=== PATIENT | female | born 1940 | race Caucasian/White ===

== ENCOUNTER 2019-07-30 13:37 | Outpatient (CLI) | payer MEDICARE ==
--- NOTE | 2019-07-30 13:48 | RAD ---
EXAM: Chest 2 views: HISTORY: Cough COMPARISON: 07/26/2011 FINDINGS: There is a normal-sized cardiomediastinal silhouette. Atherosclerotic calcifications are seen in the aorta. Hyperexpansion of the lungs is likely secondary to COPD. There is no evidence of consolidation, mass, or pleural effusion. The bones are unremarkable. IMPRESSION: No evidence of acute cardiopulmonary disease
== END 2019-07-30 13:38 | disposition home or self-care (01) ==
LOC: BICRAD 13:37
PROVIDERS: ATTEND Family Medicine
DX: R05 Cough (principal)
CPT/HCPCS: 71046

== ENCOUNTER 2020-07-13 19:29 | Inpatient (IN) | payer MEDICARE, OTHER ==
[2020-07-13 20:52] LABS: Hemoglobin 14.8 g/dL (12.0-16.0); Mean Corpuscular HGB CONC 33.7 g/dL (32.0-36.0); Mean Corpuscular Hemoglobin 30.5 pg (27.0-31.0); Mean Corpuscular Volume 90.7 fL (78.0-98.0); Mean Platelet Volume 6.4 fL (7.4-10.4); Platelet Count 301 thou/uL (130-400); RBC Distribution Width 11.6 % (11.5-14.5); Red Blood Cell (RBC) Count 4.85 mill/uL (4.20-5.40); White Blood Cell (WBC) Count 22.8 thou/uL (4.8-10.8)
[2020-07-13 21:09] LABS: Band 7 % (5-11); Lymphocytes 9 % (21-51); MDiff Complete? YES; Monocytes 6 % (0-10); Neutrophil 78 % (42-75); Toxic Granulation SLIGHT; Vacuoles SLIGHT
[2020-07-13 21:10] LABS: ALT (SGPT) 46 U/L (8-55); AST (SGOT) 42 U/L (5-34); Albumin 3.1 g/dL (3.4-4.8); Alkaline Phosphatase 100 U/L (40-110); Anion Gap 15 mmol/L (10-20); BUN (Urea Nitrogen) 42 mg/dL (9.8-20.1); Bilirubin, Total 0.7 mg/dL (0.2-1.2); CK (CPK) 28 U/L (29-168); Calc. Creatinine Clearance 0 mL/min (70-130); Calcium 8.3 mg/dL (7.8-10.44); Carbon Dioxide 29 mmol/L (23-31); Chloride 86 mmol/L (98-107); Estimated GFR-MDRD 31; Glucose 130 mg/dL (83-110); Magnesium 1.8 mg/dL (1.6-2.6); Protein, Total 6.1 g/dL (6.0-8.3); Sodium 127 mmol/L (136-145)
[2020-07-13 21:15] LABS: Potassium 2.8 mmol/L (3.5-5.1)
[2020-07-13] MEDS ORDERED: Potassium Chloride 20 MEQ TAB ONE (21:47)
[2020-07-13] MEDS ORDERED: Potassium Chloride 40 MEQ in Sodium Chloride 0.9% 250 ML 250 ML IVPB SCH (22:00)
--- NOTE | 2020-07-13 22:14 | CT ---
CT abdomen and pelvis noncontrast HISTORY: Flank pain. Diarrhea. FINDINGS: Mild atelectasis at the lung bases. Small hiatal hernia. Prominent calcification throughout the arterial structures. Hyperdense stones are present within the dependent portion of the gallbladder lumen. A 2.7 cm cyst is present at the lateral cortex of the right kidney. There are prominent degenerative changes throughout the lumbar spine. Posterior disc protrusion at th e L3-4 level. Calcified fibroid involvement of the uterus. No evidence of bowel obstruction. There is prominent circumferential wall thickening involving the en tirety of the colon and rectum with significant stranding in the adjacent fat. Small amount of fluid at each paracolic gutter. No free air evident. IMPRESSION : Severe inflammatory changes of the entire colon. The pattern is not typical for ischemia. Inflammatio n more severe than usually seen with inflammatory bowel disease. Consider infection. Cholelithiasis. Atherosclerosis.
[2020-07-13] MEDS ORDERED: metroNIDAZOLE 500 MG/100 ML BAG ONE (23:11)
--- NOTE | 2020-07-14 00:02 | PDOC.FPRHP ---
- History of Present Illness Chief Complaint: diarrhea History of Present Illness: Mirela Blair 79 yo F with a history of HTN, HLD complaining of diarrhea of 7 day duration, up to 10 episodes per day. She denies melena or hematochezia. Patient was feeling especially weak and dehydrated today and came to the ED. She was given amoxicillin by her dentist over 1 week ago and began having diarrhea shortly after. Dentist instructed her to discontinue the amoxicillin. She was also taking tylenol #3 for the dental procedure. ED Course: Was found to be hypokalemic (2.8) and given 40PO and 40IV potassium. CT abdomen revealed diffuse inflammatory changes. WBC 22.8, HR > 90. Patient was given cipra, flagyl. - Allergies/Adverse Reactions Allergies Allergy/AdvReac Type Severity Reaction Status Date / Time clindamycin Allergy Verified 07/14/20 02:52 - Home Medications Medication Instructions Recorded Confirmed Type Acyclovir [Zovirax] 400 mg PO DAILY 07/14/20 07/14/20 History Aspirin [Ecotrin Low Strength] 81 mg PO DAILY 07/14/20 07/14/20 History Escitalopram Oxalate [Lexapro] 10 mg PO DAILY 07/14/20 07/14/20 History Folic Acid [FA-8] 0.8 mg PO DAILY 07/14/20 07/14/20 History Hydrochlorothiazide 25 mg PO DAILY 07/14/20 07/14/20 History Naphazoline HCl/Pheniramine 1 drop EA EYE HS 07/14/20 07/14/20 History [Opcon-A Eye Allergy Relief Drops] Polyvinyl Alcohol/Povidone/PF 30 ml EA EYE PRN PRN 07/14/20 07/14/20 History [Refresh Classic Eye Drops] Pravastatin Sodium [Pravachol] 20 mg PO HS 07/14/20 07/14/20 History - History PMHx: HTN, HLD, Depression PSHx: Denies FHx: Noncontributory Social: Denies alcohol, tobacco, drug use. Currently living with her son to care for her grandson. - Review of Systems General: denies: fever/chills Eyes: denies: eye pain, vision changes ENT: denies: nasal congestion, rhinorrhea Respiratory: denies: cough, congestion, shortness of breath Cardiovascular: denies: chest pain, edema Gastrointestinal: reports: vomiting, diarrhea. denies: abdominal pain, GI bleeding Genitourinary: reports: dysuria, other (frequency) Skin: denies: rashes, lesions Musculoskeletal: denies: pain, swelling Neurological: denies: numbness, weakness Psychological: reports: depression - Vital signs BP: 169/78 HR: 88 RR: 14 Tmax: 98.7 Pox: 96% on RA Wt: 51kg - Physical Exam Constitutional: NAD, awake, alert and oriented HEENT: normocephalic and atraumatic, EOMI, conjunctiva clear, no scleral icterus , grossly normal vision, grossly normal hearing Neck: FROM Heart: RRR, pulses present, no edema, other (systolic murmur) Lungs: CTAB, no respiratory distress, good air movement Abdomen: soft, other (mild diffuse tenderness to palpation) Musculoskeletal: ROM grossly normal Psychiatric: normal mood and affect, good judgment and insight, intact recent and remote memory FMR H&P: Results - Labs Result Diagrams: 07/14/20 04:18 07/14/20 04:18 Lab results: WBC 22.8 thou/uL (4.8-10.8) H 07/13/20 20:40 Hgb 14.8 g/dL (12.0-16.0) 07/13/20 20:40 Hct 43.9 % (36.0-47.0) 07/13/20 20:40 MCV 90.7 fL (78.0-98.0) 07/13/20 20:40 Plt Count 301 thou/uL (130-400) 07/13/20 20:40 Band Neuts % (Manual) 7 % (5-11) 07/13/20 20:40 Sodium 127 mmol/L (136-145) L 07/13/20 20:40 Potassium 2.8 mmol/L (3.5-5.1) L* 07/13/20 20:40 Chloride 86 mmol/L (98-107) L 07/13/20 20:40 Carbon Dioxide 29 mmol/L (23-31) 07/13/20 20:40 BUN 42 mg/dL (9.8-20.1) H 07/13/20 20:40 Creatinine 1.58 mg/dL (0.6-1.1) H 07/13/20 20:40 Glucose 130 mg/dL (83-110) H 07/13/20 20:40 Lactic Acid 1.2 mmol/L (0.5-2.2) 07/13/20 22:59 Calcium 8.3 mg/dL (7.8-10.44) 07/13/20 20:40 Total Bilirubin 0.7 mg/dL (0.2-1.2) 07/13/20 20:40 AST 42 U/L (5-34) H 07/13/20 20:40 ALT 46 U/L (8-55) 07/13/20 20:40 Alkaline Phosphatase 100 U/L (40-110) 07/13/20 20:40 Creatine Kinase 28 U/L (29-168) L 07/13/20 20:40 Serum Total Protein 6.1 g/dL (6.0-8.3) 07/13/20 20:40 Albumin 3.1 g/dL (3.4-4.8) L 07/13/20 20:40 - Radiology Interpretation CT scan - abdomen Status: report reviewed by me (diffuse inflammatory changes) FMR H&P: A/P - Plan 79 yo F with a history of HTN, HLD complaining of diarrhea Sepsis 2/2 Colitis WBC 22.8, tachycardia, lactic acid 1.2 CT abd showed diffuse inflammatory changes Stool studies pending BCx pending Procal, CRP pending mIVF Hypokalemia K 2.8, received 40meq KCL PO and IV Mg pending Recheck K with AM labs CATHERINE vs CKD Cr 1.58, unknown baseline Continue to monitor Dysuria/frequency UA with reflux Cx pending HTN Continue home medications HLD Continue home medications Depression Continue home medications PCP: Sudhir Dispo: eLOS > 48hrs pending clinical improvement FMR H&P: Upper Level - Plan Date/Time: 07/14/20 0002 81yo female with pmh of HTN, HLD presents with diarrhea and not feeling well. Reports diarrhea approx 10x per day for the last week. Denies hematochezia, melena. Started a few days after she began taking Amoxicillin for dental work, was also prescribed Tylenol #3. She called her dentist and was instructed to stop Amoxicillin. No hx of chronic diarrhea. Denies abdominal pain. Has been unable to make it to the stool due to urgency. Last colonoscopy "many years ago, " no hx of abnormal findings. Denies fever, chills, cough, SOB. No hx of C diff. Also reports dysuria and urinary frequency for the last week. Has vomited once. Unable to keep up with fluid intake. PE: General: NAD CV: Tachycardic, systolic murmur Pulm: CTA b/l Abdomen: Nontender, BS+, no hepatosplenomegaly Rectal: Incontinent of small amt of stool. External hemorrhoids present. Loose anal sphincter. Otherwise normal. A/P: Sepsis 2/2 Colitis -Tachycardic, leukocytosis 22.8. Lactic acid 1.2. CT with severe inflammatory changes of entire colon. Not typical for ischemia and more severe than seen with IBD. Likely infectious. Stool studies ordered. Blood cx pending. Ordered procal and CRP. mIVF. Admit to tele due to hypokalemia. Hypokalemia, hypochloremia 2/2 diarrhea -2.8, s/p 40meq KCL PO and IV. Ordered Mg. Will recheck K with AM labs. Hyponatremia likely 2/2 hypovolemia - s/p 1L NS. Started on mIVF. Will recheck BMP with AM labs. CATHERINE vs CKD - Cr 1.58, unknown baseline. Continue to monitor Dysuria/frequency - Ordered UA with reflux cx. I, Lesia Gomez, have evaluated this patient and agree with findings/plan as outlined by product managent intern resident. Pertinent changes/additions are listed here. Addendum - Attending - Attending Attestation Date/Time: 07/14/20 1112 I personally evaluated the patient and discussed the management with Dr. Pacheco this morning. I agree with the History, Examination, Assessment and Plan documented above with any addition or exceptions noted below. Patient started on cipro/flagyl prior to me being notified. Will d/c and begin PO vanc. She is comfortable with no overt dehydration at time of my exam and mild TTP of abdomen without peritoneal signs.
[2020-07-14] MEDS ORDERED: Sodium Chloride 0.9% 1,000 ML IV SCH (00:45)
[2020-07-14] MEDS ORDERED: Acetaminophen 325 MG TAB PO PRN (00:53)
[2020-07-14] MEDS ORDERED: Ondansetron ODT 4 MG TAB PO PRN (00:53)
[2020-07-14] MEDS ORDERED: Ondansetron PF 4 MG/2 ML Vial IVP PRN (00:53)
[2020-07-14 01:44] VITALS: BMI 20.7
[2020-07-14 02:05] LABS: CRP (Inflammatory) 20.46 mg/dL (= or < 0.5); Magnesium 1.6 mg/dL (1.6-2.6)
[2020-07-14] MEDS: Lactated Ringer's 1,000 ML IV SCH ×2 (02:20→16:41)
[2020-07-14] MEDS ORDERED: Polyvinyl Alcohol 1.4%/Povidone 0.6% Opth Drops EA EYE PRN (04:12)
[2020-07-14 05:16] LABS: #Eosinphils 0.1 thou/uL (0.0-0.7); #Lymphocytes 0.9 thou/uL (1.20-3.40); #Monocytes 1.5 thou/uL (0.11-0.59); #Neutrophils 16.9 thou/uL (1.40-6.50); %Basophils 0.1 % (0.0-1.0); %Eosinophils 0.3 % (0.0-10.0); %Lymphocytes 4.7 % (21.0-51.0); %Monocytes 7.9 % (0.0-10.0); %Neutrophils 87.1 % (42.0-75.0); Hemoglobin 13.5 g/dL (12.0-16.0); Mean Corpuscular HGB CONC 32.2 g/dL (32.0-36.0); Mean Corpuscular Hemoglobin 29.5 pg (27.0-31.0); Mean Corpuscular Volume 91.6 fL (78.0-98.0); Mean Platelet Volume 6.8 fL (7.4-10.4); Platelet Count 264 thou/uL (130-400); RBC Distribution Width 11.6 % (11.5-14.5); Red Blood Cell (RBC) Count 4.58 mill/uL (4.20-5.40); White Blood Cell (WBC) Count 19.4 thou/uL (4.8-10.8)
[2020-07-14 05:49] LABS: Anion Gap 14 mmol/L (10-20); BUN (Urea Nitrogen) 29 mg/dL (9.8-20.1); Calc. Creatinine Clearance 43 mL/min (70-130); Calcium 7.7 mg/dL (7.8-10.44); Carbon Dioxide 23 mmol/L (23-31); Chloride 96 mmol/L (98-107); Estimated GFR-MDRD 65; Glucose 113 mg/dL (83-110); Potassium 3.8 mmol/L (3.5-5.1); Sodium 129 mmol/L (136-145)
[2020-07-14] MEDS ORDERED: metroNIDAZOLE 500 MG in Premix Bag 1 BAG IVPB SCH (06:00)
[2020-07-14] MEDS: Hydrochlorothiazide 25 MG TAB PO SCH (09:09)
[2020-07-14] MEDS: Acyclovir 400 mg Tablet PO SCH (09:09)
[2020-07-14] MEDS: Folic Acid 1 MG TAB PO SCH (09:09)
[2020-07-14] MEDS: Enoxaparin Sodium 30 MG/0.3 ML SYRINGE SC SCH (09:09)
[2020-07-14] MEDS: Escitalopram Oxalate 10 mg Tablet PO SCH (09:09)
[2020-07-14] MEDS: Aspirin 81 mg Enteric Coated Tablet PO SCH (09:09)
[2020-07-14] MEDS: Vancomycin HCl 25 MG/ML Oral PO SCH ×3 (12:14→21:30)
[2020-07-14 14:55] LABS: SARS-CoV-2 MS2 Positive; SARS-CoV-2 N Gene Negative; SARS-CoV-2 S Gene Negative; SARS-CoV-2 by NAA Not Detected (NotDetected); SARS-CoV-2 orf1ab Negative
[2020-07-14 17:24] LABS: Bacteria/HPF 3+ HPF (None Seen); Bilirubin Negative (Negative); Blood, Urine 2+ (Negative); Clarity Extra Turbid (Clear); Glucose, Urine (Dipstick) 50 mg/dL (Negative); Ketone, Urine Negative (Negative); Leukocyte 500 Leu/uL (Negative); Nitrite Negative (Negative); Protein, Urine (Dipstick) 30 mg/dL (Neg-Trace); RBC/HPF Greater than 50 HPF (0-3); Specific Gravity, Urine 1.013 (1.002-1.036); Squamous Epithelial 0-3 HPF (0-3); Urobilinogen Normal mg/dL (Less than 2); WBC/HPF Greater than 50 HPF (0-3); pH, Urine 5.5 (5.0-9.0)
[2020-07-14 17:28] LABS: Urine Culture Reflex Yes Yes
[2020-07-14] MEDS: cefTRIAXone\\ROCEPHIN 1 GM in Sodium Chloride 0.9% 100 ML IVPB SCH (18:20)
[2020-07-14] MEDS ORDERED: [UNRECOGNIZED DRUG - REMARK] EA EYE SCH (21:00)
[2020-07-14] MEDS: Simvastatin 10 MG TAB PO SCH (21:30)
[2020-07-14] MEDS: Calcium Carbonate 500 MG ChewTAB PO PRN (21:30)
[2020-07-15] MEDS: Vancomycin HCl 25 MG/ML Oral PO SCH ×3 (04:49→16:44)
[2020-07-15] MEDS: Lactated Ringer's 1,000 ML IV SCH (04:49)
[2020-07-15 04:55] LABS: #Eosinphils 0.1 thou/uL (0.0-0.7); #Lymphocytes 1.7 thou/uL (1.20-3.40); #Monocytes 1.3 thou/uL (0.11-0.59); %Basophils 0.3 % (0.0-1.0); %Eosinophils 0.8 % (0.0-10.0); %Lymphocytes 13.9 % (21.0-51.0); Hemoglobin 14.4 g/dL (12.0-16.0); Mean Corpuscular HGB CONC 32.4 g/dL (32.0-36.0); Mean Corpuscular Hemoglobin 30.1 pg (27.0-31.0); Mean Corpuscular Volume 92.9 fL (78.0-98.0); Mean Platelet Volume 6.7 fL (7.4-10.4); Platelet Count 304 thou/uL (130-400); RBC Distribution Width 11.6 % (11.5-14.5); Red Blood Cell (RBC) Count 4.78 mill/uL (4.20-5.40); White Blood Cell (WBC) Count 12.2 thou/uL (4.8-10.8)
[2020-07-15 05:16] LABS: Anion Gap 12 mmol/L (10-20); BUN (Urea Nitrogen) 12 mg/dL (9.8-20.1); Calc. Creatinine Clearance 56 mL/min (70-130); Calcium 8.2 mg/dL (7.8-10.44); Carbon Dioxide 28 mmol/L (23-31); Chloride 93 mmol/L (98-107); Estimated GFR-MDRD 89; Glucose 101 mg/dL (83-110); Potassium 3.6 mmol/L (3.5-5.1); Sodium 129 mmol/L (136-145)
--- NOTE | 2020-07-15 05:47 | PDOC.FM ---
- Subjective Subjective: Pt sitting up eating breakfast this AM. No acute events overnight. States that she is still having diarrhea. She feels better today. Less nausea. No vomiting. - Objective Vital Signs & Weight: Vital Signs (12 hours) Temp Pulse Resp BP Pulse Ox 07/15/20 04:00 98.9 F 87 21 H 155/71 H 96 07/14/20 19:28 96.9 F L 85 20 134/63 95 Weight Weight 51.528 kg I&O: 07/13/20 07/14/20 07/15/20 06:59 06:59 06:59 Intake Total 300 2970 Balance 300 2970 Result Diagrams: 07/15/20 04:37 07/15/20 04:37 Phys Exam - Physical Examination Constitutional: NAD HEENT: moist MMs Neck: supple Respiratory: no wheezing, no rales, no rhonchi, clear to auscultation bilateral Cardiovascular: RRR, no rub Gastrointestinal: soft, non-tender, no distention, positive bowel sounds Musculoskeletal: no edema, pulses present Neurological: non-focal, normal sensation, moves all 4 limbs Psychiatric: normal affect, A&O x 3 Skin: no rash, normal turgor, cap refill <2 seconds Dx/Plan - Plan Plan: 79 yo F with a history of HTN, HLD presents with diarrhea. ##Sepsis 2/2 Colitis Pt admitted with WBC 22.8, tachycardia, lactic acid 1.2 CT abd showed diffuse inflammatory changes Stool studies positive for c.diff and toxin, neg for campylobacter, shiga toxin Procal, 0.64, CRP 20 leuokocytosis trending downwards from -->12 today BCx neg po vancomycin started 07/14 ##UTI UA pos for blood, leuks, and bacteria, ceftriaxone started 07/14 urine clx pending ##CATHERINE vs CKD, resolved Cr 1.58, unknown baseline-->12/0.64 Continue to monitor ##Hypokalemia, resolved K 2.8, received 40meq KCL PO and IV-->today 3.6 Mg wnl monitor and replete as necessary ##Hyponatremia Na 127 on admission, 129 today monitor salt intake ##HTN Continue home medications ##HLD Continue home medications ##Depression Continue home medications ##HSV, chronic mouth ulcers Pt on acyclovir for this CODE: FULL VTE: lovenox PCP: Bacak Dispo: eLOS > 48hrs pending clinical improvement. Addendum - Attending - Attending Attestation Date/Time: 07/15/20 3959 I personally evaluated the patient and discussed the management with the team. I agree with the History, Examination, Assessment and Plan documented above with any addition or exceptions noted below.
[2020-07-15] MEDS: Aspirin 81 mg Enteric Coated Tablet PO SCH (09:57)
[2020-07-15] MEDS: Acyclovir 400 mg Tablet PO SCH (09:58)
[2020-07-15] MEDS: Lactinex Tablet PO SCH (09:58)
[2020-07-15] MEDS: Folic Acid 1 MG TAB PO SCH (09:58)
[2020-07-15] MEDS: Escitalopram Oxalate 10 mg Tablet PO SCH (09:58)
[2020-07-15] MEDS: Hydrochlorothiazide 25 MG TAB PO SCH (09:58)
[2020-07-15] MEDS: Enoxaparin Sodium 30 MG/0.3 ML SYRINGE SC SCH (09:58)
[2020-07-15] MEDS: cefTRIAXone\\ROCEPHIN 1 GM in Sodium Chloride 0.9% 100 ML IVPB SCH (18:26)
[2020-07-15] MEDS: Simvastatin 10 MG TAB PO SCH (20:57)
[2020-07-16] MEDS: Vancomycin HCl 25 MG/ML Oral PO SCH ×5 (00:16→21:47)
[2020-07-16 04:33] LABS: #Basophils 0.1 thou/uL (0.0-0.2); #Eosinphils 0.1 thou/uL (0.0-0.7); #Monocytes 1.2 thou/uL (0.11-0.59); #Neutrophils 7.2 thou/uL (1.40-6.50); %Basophils 0.6 % (0.0-1.0); %Eosinophils 1.4 % (0.0-10.0); %Lymphocytes 18.9 % (21.0-51.0); %Monocytes 11.1 % (0.0-10.0); Hemoglobin 13.8 g/dL (12.0-16.0); Mean Corpuscular HGB CONC 32.8 g/dL (32.0-36.0); Mean Corpuscular Hemoglobin 30.6 pg (27.0-31.0); Mean Corpuscular Volume 93.3 fL (78.0-98.0); Mean Platelet Volume 6.4 fL (7.4-10.4); Platelet Count 315 thou/uL (130-400); RBC Distribution Width 11.7 % (11.5-14.5); Red Blood Cell (RBC) Count 4.51 mill/uL (4.20-5.40); White Blood Cell (WBC) Count 10.6 thou/uL (4.8-10.8)
[2020-07-16 04:43] LABS: Anion Gap 14 mmol/L (10-20); BUN (Urea Nitrogen) 8 mg/dL (9.8-20.1); Calc. Creatinine Clearance 55 mL/min (70-130); Calcium 7.7 mg/dL (7.8-10.44); Carbon Dioxide 27 mmol/L (23-31); Chloride 93 mmol/L (98-107); Estimated GFR-MDRD 87; Glucose 108 mg/dL (83-110); Potassium 3.9 mmol/L (3.5-5.1); Sodium 130 mmol/L (136-145)
--- NOTE | 2020-07-16 05:37 | PDOC.FM ---
- Subjective Subjective: Pt resting in bed this AM. No acute events overnight. States that her diarrhea has slowed down. She is feeling stomach cramping this AM. Is hungry for breakfast. Feeling same as yesterday. - Objective Vital Signs & Weight: Vital Signs (12 hours) Temp Pulse Resp BP Pulse Ox 07/16/20 00:00 98.1 F 90 18 138/64 96 07/15/20 20:00 98.3 F 92 18 146/68 H 95 Weight Weight 51.528 kg I&O: 07/14/20 07/15/20 07/16/20 06:59 06:59 06:59 Intake Total 300 2970 240 Balance 300 2970 240 Result Diagrams: 07/16/20 04:16 07/16/20 04:16 Phys Exam - Physical Examination Constitutional: NAD HEENT: PERRLA, moist MMs Neck: supple Respiratory: no wheezing, no rales, no rhonchi, clear to auscultation bilateral Cardiovascular: RRR, no significant murmur, no rub Gastrointestinal: soft, non-tender, no distention, positive bowel sounds Musculoskeletal: no edema, pulses present Neurological: normal sensation, moves all 4 limbs Psychiatric: normal affect, A&O x 3 Skin: no rash, normal turgor, cap refill <2 seconds Dx/Plan - Plan Plan: 79 yo F with a history of HTN, HLD presents with diarrhea. ##Sepsis 2/2 Colitis Pt admitted with WBC 22.8, tachycardia, lactic acid 1.2 CT abd showed diffuse inflammatory changes Stool studies positive for c.diff and toxin, neg for campylobacter, shiga toxin Procal, 0.64, CRP 20 leuokocytosis trending downwards from 19-->12-->10 today BCx neg po vancomycin started 07/14 ##UTI UA pos for blood, leuks, and bacteria, ceftriaxone started 07/14 Ucx grew mixed skin and enteric angelo no symptoms ##CATHERINE vs CKD, resolved Cr 1.58, unknown baseline-->12/0.64 Continue to monitor ##Hypokalemia, resolved K 2.8, received 40meq KCL PO and IV-->today 3.6 Mg wnl monitor and replete as necessary ##Hyponatremia Na 127 on admission, 129--> 130 today monitor salt intake ##HTN Continue home medications ##HLD Continue home medications ##Depression Continue home medications ##HSV, chronic mouth ulcers Pt on acyclovir for this CODE: FULL VTE: lovenox PCP: Sudhir Dispo: eLOS > 48hrs pending clinical improvement. Addendum - Attending - Attending Attestation Date/Time: 07/16/20 1012 I personally evaluated the patient and discussed the management with the team. I agree with the History, Examination, Assessment and Plan documented above with any addition or exceptions noted below.
[2020-07-16] MEDS: Hydrochlorothiazide 25 MG TAB PO SCH (09:06)
[2020-07-16] MEDS: Aspirin 81 mg Enteric Coated Tablet PO SCH (09:06)
[2020-07-16] MEDS: Escitalopram Oxalate 10 mg Tablet PO SCH (09:07)
[2020-07-16] MEDS: Folic Acid 1 MG TAB PO SCH (09:07)
[2020-07-16] MEDS: Lactinex Tablet PO SCH (09:07)
[2020-07-16] MEDS: Enoxaparin Sodium 30 MG/0.3 ML SYRINGE SC SCH (09:09)
[2020-07-16] MEDS: Acyclovir 400 mg Tablet PO SCH (09:11)
[2020-07-16] MEDS: Simvastatin 10 MG TAB PO SCH (21:47)
[2020-07-16] MEDS: Melatonin 3 MG TAB PO PRN (21:53)
[2020-07-17] MEDS: Vancomycin HCl 25 MG/ML Oral PO SCH ×4 (05:14→21:10)
[2020-07-17] MEDS: Calcium Carbonate 500 MG ChewTAB PO PRN (05:16)
--- NOTE | 2020-07-17 05:16 | PDOC.FM ---
- Subjective Subjective: Pt resting comfortably in bed this AM. No acute events overnight. States that her BM have become less watery and is still having stomach cramps/pain. States that she has been able to eat however she is having indigestion which is bothering her. - Objective Vital Signs & Weight: Vital Signs (12 hours) Temp Pulse Resp BP Pulse Ox 07/16/20 20:00 99.4 F 87 20 165/78 H 95 Weight Weight 51.528 kg I&O: 07/15/20 07/16/20 07/17/20 06:59 06:59 06:59 Intake Total 2970 1080 1200 Balance 2970 1080 1200 Result Diagrams: 07/17/20 05:27 07/17/20 05:27 Phys Exam - Physical Examination Constitutional: NAD HEENT: moist MMs Neck: no nodes, supple Respiratory: no wheezing, no rales, no rhonchi, clear to auscultation bilateral Cardiovascular: RRR, no significant murmur, no rub Gastrointestinal: soft, non-tender, no distention, positive bowel sounds Musculoskeletal: no edema, pulses present Neurological: non-focal, normal sensation, moves all 4 limbs Psychiatric: normal affect, A&O x 3 Skin: no rash, normal turgor, cap refill <2 seconds Dx/Plan - Plan Plan: 79 yo F with a history of HTN, HLD presents with diarrhea. ##Sepsis 2/2 Colitis Pt admitted with WBC 22.8, tachycardia, lactic acid 1.2 CT abd showed diffuse inflammatory changes Stool studies positive for c.diff and toxin, neg for campylobacter, shiga toxin Procal, 0.64, CRP 20 leuokocytosis trending downwards from 19-->12-->10-->12.8 BCx neg po vancomycin started 07/14 PT: d/cd with walking program due to patient meeting all her goals ##UTI UA pos for blood, leuks, and bacteria, ceftriaxone d/c due to ucx results Ucx final grew mixed skin and enteric angelo no symptoms ##CATHERINE vs CKD, resolved Cr 1.58, unknown baseline-->12/0.64 Continue to monitor ##Hypokalemia, resolved K 2.8, received 40meq KCL PO and IV-->3.6-->3.0 Mg wnl monitor and replete as necessary ##Hyponatremia Na 127 on admission, 129--> 130-->133 monitor salt intake ##HTN Continue home medications ##HLD Continue home medications ##Depression Continue home medications ##HSV, chronic mouth ulcers Pt on acyclovir for this CODE: FULL VTE: lovenox PCP: Sudhir Dispo: eLOS > 48hrs. replenish potassium. patient has been improving steadily. consider home today or tomorrow. Addendum - Attending - Attending Attestation Date/Time: 07/17/20 [id number] I personally evaluated the patient and discussed the management with Dr. Quintero. I agree with the History, Examination, Assessment and Plan documented above with any addition or exceptions noted below. Continues to improve. Can ambulate without difficulty and her diarrhea has largely resolved. She tolerates PO and I believe is safe for dc.
[2020-07-17 05:42] LABS: #Eosinphils 0.2 thou/uL (0.0-0.7); #Lymphocytes 2.1 thou/uL (1.20-3.40); #Monocytes 1.6 thou/uL (0.11-0.59); #Neutrophils 8.9 thou/uL (1.40-6.50); %Basophils 0.4 % (0.0-1.0); %Eosinophils 1.3 % (0.0-10.0); %Lymphocytes 16.2 % (21.0-51.0); %Monocytes 12.3 % (0.0-10.0); %Neutrophils 69.8 % (42.0-75.0); Hemoglobin 13.8 g/dL (12.0-16.0); Mean Corpuscular HGB CONC 32.6 g/dL (32.0-36.0); Mean Platelet Volume 5.9 fL (7.4-10.4); Platelet Count 348 thou/uL (130-400); RBC Distribution Width 11.7 % (11.5-14.5); Red Blood Cell (RBC) Count 4.59 mill/uL (4.20-5.40); White Blood Cell (WBC) Count 12.8 thou/uL (4.8-10.8)
[2020-07-17 06:07] LABS: Anion Gap 9 mmol/L (10-20); BUN (Urea Nitrogen) 8 mg/dL (9.8-20.1); Calc. Creatinine Clearance 61 mL/min (70-130); Calcium 7.9 mg/dL (7.8-10.44); Carbon Dioxide 35 mmol/L (23-31); Chloride 92 mmol/L (98-107); Estimated GFR-MDRD Greater than 90; Glucose 111 mg/dL (83-110); Sodium 133 mmol/L (136-145)
[2020-07-17] MEDS ORDERED: Potassium Chloride 20 MEQ TAB PO SCH (08:30)
[2020-07-17] MEDS: Aspirin 81 mg Enteric Coated Tablet PO SCH (09:28)
[2020-07-17] MEDS: Acyclovir 400 mg Tablet PO SCH (09:28)
[2020-07-17] MEDS: Lactinex Tablet PO SCH (09:29)
[2020-07-17] MEDS: Folic Acid 1 MG TAB PO SCH (09:29)
[2020-07-17] MEDS: Enoxaparin Sodium 30 MG/0.3 ML SYRINGE SC SCH (09:29)
[2020-07-17] MEDS: Hydrochlorothiazide 25 MG TAB PO SCH (09:29)
[2020-07-17] MEDS: Escitalopram Oxalate 10 mg Tablet PO SCH (09:30)
[2020-07-17 14:57] LABS: Magnesium 1.3 mg/dL (1.6-2.6); Phosphorus 2.8 mg/dL (2.3-4.7)
[2020-07-17] MEDS ORDERED: Magnesium 2 GM/50 ML 2 GM in Premix Bag 1 BAG IVPB SCH (16:15)
[2020-07-17] MEDS: Potassium Chloride 20 MEQ TAB PO SCH (17:34)
[2020-07-17] MEDS: Simvastatin 10 MG TAB PO SCH (21:10)
[2020-07-17] MEDS: Melatonin 3 MG TAB PO PRN (21:16)
[2020-07-17] MEDS: Simethicone Chewable 80 MG TAB PO PRN (21:47)
[2020-07-18] MEDS: Vancomycin HCl 25 MG/ML Oral PO SCH ×3 (04:10→16:19)
[2020-07-18 04:48] LABS: #Basophils 0.1 thou/uL (0.0-0.2); #Eosinphils 0.2 thou/uL (0.0-0.7); #Lymphocytes 2.1 thou/uL (1.20-3.40); #Neutrophils 12.8 thou/uL (1.40-6.50); %Basophils 0.6 % (0.0-1.0); %Eosinophils 0.9 % (0.0-10.0); %Lymphocytes 12.2 % (21.0-51.0); %Monocytes 11.5 % (0.0-10.0); %Neutrophils 74.8 % (42.0-75.0); Hemoglobin 13.8 g/dL (12.0-16.0); Mean Corpuscular HGB CONC 33.2 g/dL (32.0-36.0); Mean Corpuscular Hemoglobin 30.7 pg (27.0-31.0); Mean Corpuscular Volume 92.4 fL (78.0-98.0); Mean Platelet Volume 5.9 fL (7.4-10.4); Platelet Count 348 thou/uL (130-400); RBC Distribution Width 11.7 % (11.5-14.5); Red Blood Cell (RBC) Count 4.49 mill/uL (4.20-5.40); White Blood Cell (WBC) Count 17.1 thou/uL (4.8-10.8)
--- NOTE | 2020-07-18 04:58 | PDOC.FM ---
- Subjective Subjective: Patient is resting comfortably in bed. No acute events overnight. She states that she only had 1 episode of diarrhea over night and it was more solid than it has been. States her abdominal pain is mild and diffuse. She notes she doesn' t feel comfortable going home yet. States that she is concerned about having to go diarrhea a lot and is concerned about infecting her son or his 11 year old son. Denies fever, nausea, vomiting, chest pain, SOB. - Objective MAR Reviewed: Yes Vital Signs & Weight: Vital Signs (12 hours) Temp Pulse Resp BP Pulse Ox 07/18/20 04:00 97.9 F 99 16 185/86 H 94 L 07/18/20 00:15 98.2 F 80 16 182/79 H 95 07/17/20 23:58 80 182/79 H 07/17/20 20:00 99.0 F 20 172/81 H 95 Weight Weight 51.528 kg I&O: 07/16/20 07/17/20 07/18/20 06:59 06:59 06:59 Intake Total 1080 1920 900 Output Total 800 Balance 1080 1120 900 Result Diagrams: 07/18/20 04:38 07/18/20 04:38 Phys Exam - Physical Examination Constitutional: NAD HEENT: PERRLA, moist MMs Respiratory: no wheezing, clear to auscultation bilateral Cardiovascular: RRR, no significant murmur Gastrointestinal: soft, positive bowel sounds generalized diffuse tenderness to palpation Musculoskeletal: no edema, pulses present Neurological: non-focal, moves all 4 limbs Psychiatric: A&O x 3 Skin: no rash Dx/Plan - Plan Plan: 79 yo F with a history of HTN, HLD presents with diarrhea. ##Sepsis 2/2 Colitis Pt admitted with WBC 22.8, tachycardia, lactic acid 1.2 CT abd showed diffuse inflammatory changes Stool studies positive for c.diff and toxin, neg for campylobacter, shiga toxin Procal, 0.64, CRP 20 leuokocytosis initially trending down, 19-->12-->10-->12.8, today 17.1 BCx neg po vancomycin started 07/14, will d/c home PT: d/cd with walking program due to patient meeting all her goals ##CATHERINE vs CKD, resolved Cr 1.58, unknown baseline-->0.64 > .57 Continue to monitor ##Hypokalemia, resolved K 2.8, received 40meq KCL PO and IV-->3.6-->3.0 > 3.7 Mg wnl monitor and replete as necessary ##Hyponatremia Na 127 on admission, 129--> 130-->133>131 monitor salt intake ##UTI UA pos for blood, leuks, and bacteria, ceftriaxone d/c due to ucx results Ucx final grew mixed skin and enteric angelo no symptoms ##HTN elevated during stay 140s-180s systolic - will increase HCTZ to BID on d/c and have patient f/u with PCP ##HLD Continue home medications ##Depression Continue home medications ##HSV, chronic mouth ulcers Pt on acyclovir for this CODE: FULL VTE: lovenox PCP: Sudhir Dispo: Mercedes <48 hours, likely d/c home today.
[2020-07-18 05:13] LABS: Anion Gap 13 mmol/L (10-20); BUN (Urea Nitrogen) 9 mg/dL (9.8-20.1); Calc. Creatinine Clearance 63 mL/min (70-130); Calcium 7.9 mg/dL (7.8-10.44); Carbon Dioxide 28 mmol/L (23-31); Chloride 94 mmol/L (98-107); Estimated GFR-MDRD Greater than 90; Glucose 111 mg/dL (83-110); Magnesium 1.6 mg/dL (1.6-2.6); Potassium 3.7 mmol/L (3.5-5.1); Sodium 131 mmol/L (136-145)
[2020-07-18] MEDS: Aspirin 81 mg Enteric Coated Tablet PO SCH (08:16)
[2020-07-18] MEDS: Acyclovir 400 mg Tablet PO SCH (08:16)
[2020-07-18] MEDS: Enoxaparin Sodium 30 MG/0.3 ML SYRINGE SC SCH (08:16)
[2020-07-18] MEDS: Potassium Chloride 20 MEQ TAB PO SCH ×2 (08:16→16:20)
[2020-07-18] MEDS: Lactinex Tablet PO SCH (08:16)
[2020-07-18] MEDS: Hydrochlorothiazide 25 MG TAB PO SCH (08:17)
[2020-07-18] MEDS: Folic Acid 1 MG TAB PO SCH (08:17)
[2020-07-18] MEDS: Escitalopram Oxalate 10 mg Tablet PO SCH (08:17)
--- NOTE | 2020-07-18 14:24 | PRG ---
DATE OF SERVICE: 07/18/2020 ADDENDUM: This is an addendum to the note of Dr. Stephanie Domingo. Ms. Blair is down to now only having one bowel movement every 24 hours now. She still has some minimal abdominal cramping, but overall feels much better. She will be discharged today to complete oral vancomycin. Job ID: [id number]
[2020-07-18] MEDS: Simethicone Chewable 80 MG TAB PO PRN (14:57)
[2020-07-18 16:07] VITALS: BP 122/87; TEMP 98.2
--- NOTE | 2020-07-18 16:11 | PDOC.FMACP ---
Advance Care Planning - Problem (1) HTN (hypertension) Status: Acute Code(s): I10 - ESSENTIAL (PRIMARY) HYPERTENSION (2) Elevated HDL Status: Acute Code(s): E78.89 - OTHER LIPOPROTEIN METABOLISM DISORDERS (3) Colitis Status: Acute Code(s): K52.9 - NONINFECTIVE GASTROENTERITIS AND COLITIS, UNSPECIFIED - Note Participants: patient, palliative care Summary: Advanced Care Planning was discussed by Palliative Care, opportunity to decline. The diagnosis, prognosis and goals of care were discussed. Appropriate forms and documentation to accomplish the goals of care were discussed. All questions were answered. Ms Blair elected to complete her MPOA and Directive to Physician. Original and copy given to patient, copies placed on chart. Confirmed full resuscitation status. Please also refer to Palliative Care notes in note section Time Spent (mins): 20
--- NOTE | 2020-07-19 07:50 | DIS ---
DATE OF ADMISSION: 07/14/2020 DATE OF DISCHARGE: 07/18/2020 RESIDENT: Stephanie Domingo DO. ADMITTING ATTENDING: Dominik Elena MD DISCHARGE ATTENDING: Jhon Maza MD CONSULTS: None. PROCEDURE: None. PRIMARY DIAGNOSES: Sepsis, 2/2, C. difficile colitis. SECONDARY DIAGNOSES: 1. Hypokalemia, resolved. 2. Hyponatremia, resolved. 3. Acute kidney injury, resolved. 4. Hypertension. 5. Hyperlipidemia. 6. Depression. DISCHARGE MEDICATIONS: 1. Vancomycin hydrochloride 25 mg/mL 125 mg p.o. q.6 hours x12 days. 2. Lactobacillus one tablet p.o. daily for 30 days. 3. Hydrochlorothiazide 25 mg p.o. b.i.d. for 30 days. 4. Famotidine 20 mg tablet p.o. b.i.d. for 30 days. 5. Calcium carbonate 500 mg tablet, 1000 mg p.o. daily p.r.n. 6. Acyclovir 400 mg p.o. daily. 7. Aspirin 81 mg p.o. daily. 8. Lexapro 10 mg p.o. daily. 9. Folic acid 0.8 mg p.o. daily. 10. Naphazoline hydrochloride and pheniramine 15 mL bottle, one dropea. eye h.s. 11. Pravastatin sodium 20 mg p.o. at bedtime. DISCONTINUED MEDICATIONS: Hydrochlorothiazide 25 mg p.o. daily. HISTORY OF PRESENT ILLNESS AND HOSPITAL COURSE: The patient is an 79-year-old female with past history of HTN and HLD, who presented to the ED complaining of diarrhea for 7 days, up to 10 episodes per day. Denying melena or hematochezia. She was given amoxicillin by her dentist over one week ago and began having diarrhea shortly after. In the ED, she was found to be hypokalemic at 2.8 and was given 40 p.o., 40 in IV of potassium. CT abdomen revealed diffuse inflammatory changes. White count was 22.8. Heart rate was tachycardic. Patient was started on Cipro and Flagyl and stool studies were ordered. The patient had a creatinine of 1.58, unknown baseline. Stool studies came back positive for C. difficile and toxin, negative for campylobacter and Shigatoxin. The patient's Cipro and Flagyl were stopped and she was started on p.o.vancomycin. UA was positive for blood, leukocytes, and bacteria and ceftriaxone was started on 07/14 with urine culture pending. Her urine culture grew mixed skin and enteric angelo, no longer having symptoms, so ceftriaxone was stopped. Her hypokalemia resolved and patient had some transient hyponatremia that resolved. Her blood culture resulted negative. Her Creatinine went down to 0.64. PT saw the patient and discharged her with a walking program due to her meeting all of her goals. Throughout stay the patient slowly improved, having more solid-forming stools and less episodes of diarrhea. Diffuse abdominal pain improving daily. Mild abdominal pain at discharge and patient was sent home on vancomycin oral x 12 days with additional lactobacillus and tums. Patient's blood pressure was elevated and the systolics 140s to 180s during her stay. She is on hydrochlorothiazide 25mg daily at home, increased this dose to 25 b.i.d. on discharge. DISPOSITION: Stable. DISCHARGE INSTRUCTIONS: Location: Home with son. Diet: Regular diet. Activity: Ad roel. Followup: Follow up with PCP in 7 to 14 days. Follow up with Dr. Reyna in 7 days. Job ID: [id number] [facility]Jose
--- NOTE | 2020-07-20 16:00 | EKG ---
Test Reason : Blood Pressure : / mmHG Vent. Rate : 083 BPM Atrial Rate : 083 BPM P-R Int : 000 ms QRS Dur : 084 ms QT Int : 428 ms P-R-T Axes : 000 029 -40 degrees QTc Int : 502 ms Atrial fibrillation T wave abnormality, consider inferior ischemia or digitalis effect Prolonged QT Abnormal ECG Confirmed by FE Iverson, MEEK ([id number]), editor map ESTELITA PRITCHETT ([id number]) on 07/20/2020 3:59:49 PM Referred By: Confirmed By:MEEK MIRAMONTES M.D.
== END 2020-07-18 19:18 | disposition home or self-care (01) | DRG 872 ==
LOC: ERS 19:29 → 2NO 07-14 00:51 → ONC 07-15 16:10
PROVIDERS: ADMIT Internal Medicine; ATTEND Student in an Organized Health Care Education/Training Program
DX: A41.89 Other specified sepsis (principal); A04.72 Enterocolitis due to Clostridium difficile, not specified as recurrent; E87.1 Hypo-osmolality and hyponatremia; N17.9 Acute kidney failure, unspecified; B00.89 Other herpesviral infection; N39.0 Urinary tract infection, site not specified; E87.6 Hypokalemia; E78.5 Hyperlipidemia, unspecified; F32.9 Major depressive disorder, single episode, unspecified; E87.8 Other disorders of electrolyte and fluid balance, not elsewhere classified; N18.9 Chronic kidney disease, unspecified; I12.9 Hypertensive chronic kidney disease with stage 1 through stage 4 chronic kidney disease, or unspecified chronic kidney disease; Z20.828 Contact with and (suspected) exposure to other viral communicable diseases; E78.89 Other lipoprotein metabolism disorders; E86.1 Hypovolemia; Z79.82 Long term (current) use of aspirin; Z88.1 Allergy status to other antibiotic agents; Z79.899 Other long term (current) drug therapy
CPT/HCPCS: 36415; 36600; 74176; 80048; 80053; 81001; 82550; 83605; 83630; 83735; 84100; 84145; 85025; 86140; 87040; 87045; 87046; 87086; 87324; 87427; 87449; 87493; 87635; 93005; 96361; 96365; 96366; 96368; J0696; J0744; J1650; J3475; J3480; J3490; J7050; U0003

== ENCOUNTER 2020-08-11 13:09 | Emergency (ER) | payer MEDICARE ==
[2020-08-11 14:47] LABS: #Basophils 0.1 thou/uL (0.0-0.2); #Eosinphils 0.1 thou/uL (0.0-0.7); #Lymphocytes 3.3 thou/uL (1.20-3.40); #Monocytes 1.7 thou/uL (0.11-0.59); #Neutrophils 6.9 thou/uL (1.40-6.50); %Basophils 0.9 % (0.0-1.0); %Eosinophils 1.2 % (0.0-10.0); %Monocytes 13.8 % (0.0-10.0); %Neutrophils 57.1 % (42.0-75.0); Hemoglobin 12.1 g/dL (12.0-16.0); Mean Corpuscular HGB CONC 31.8 g/dL (32.0-36.0); Mean Corpuscular Hemoglobin 29.6 pg (27.0-31.0); Mean Platelet Volume 6.7 fL (7.4-10.4); Platelet Count 281 thou/uL (130-400); RBC Distribution Width 12.9 % (11.5-14.5); Red Blood Cell (RBC) Count 4.09 mill/uL (4.20-5.40); White Blood Cell (WBC) Count 12.1 thou/uL (4.8-10.8)
[2020-08-11 15:15] LABS: ALT (SGPT) 17 U/L (8-55); AST (SGOT) 24 U/L (5-34); Albumin 3.3 g/dL (3.4-4.8); Alkaline Phosphatase 61 U/L (40-110); Anion Gap 10 mmol/L (10-20); BUN (Urea Nitrogen) 16 mg/dL (9.8-20.1); Bilirubin, Total 0.6 mg/dL (0.2-1.2); Calc. Creatinine Clearance 0 mL/min (70-130); Calcium 8.9 mg/dL (7.8-10.44); Carbon Dioxide 34 mmol/L (23-31); Chloride 94 mmol/L (98-107); Estimated GFR-MDRD 62; Globulin 2.9 g/dL (2.4-3.5); Glucose 110 mg/dL (83-110); Potassium 3.1 mmol/L (3.5-5.1); Protein, Total 6.2 g/dL (6.0-8.3); Sodium 135 mmol/L (136-145)
[2020-08-11] MEDS ORDERED: Potassium Chloride 20 MEQ TAB ONE (16:00)
[2020-08-11 17:00] LABS: Bacteria/HPF 2+ HPF (None Seen); Bilirubin Negative (Negative); Blood, Urine Negative (Negative); Clarity Turbid (Clear); Glucose, Urine (Dipstick) Normal (Negative); Ketone, Urine Trace mg/dL (Negative); Leukocyte 500 Leu/uL (Negative); Mucous/LPF 1+ LPF (<2+); Nitrite Negative (Negative); Protein, Urine (Dipstick) 20 mg/dL (Neg-Trace); Renal Epithelial 0-3 HPF (None Seen); Specific Gravity, Urine 1.023 (1.002-1.036); Transitional Epithelial 0-3 HPF (None Seen); Urobilinogen Normal mg/dL (Less than 2); WBC/HPF 21-50 HPF (0-3); pH, Urine 6.5 (5.0-9.0)
== END 2020-08-11 17:58 | disposition home or self-care (01) ==
LOC: ERS 13:09
DX: R19.7 Diarrhea, unspecified (principal); I10 Essential (primary) hypertension; E78.00 Pure hypercholesterolemia, unspecified; F32.9 Major depressive disorder, single episode, unspecified
CPT/HCPCS: 36415; 80053; 81003; 81015; 85025; 99284

== ENCOUNTER 2020-11-11 10:22 | Outpatient (CLI) | payer MEDICARE ==
--- NOTE | 2020-11-11 11:00 | RAD ---
TWO VIEW CHEST: HISTORY: Chest pain. COMPARISON: 07/30/2019. FINDINGS: Lungs appear clear. No infiltrate or vascular congestion. Hyperexpansion. Heart and mediastinum un remarkable. Osseous structures unremarkable. IMPRESSION: No acute process or interval change. POS: AGW
== END 2020-11-11 10:23 | disposition home or self-care (01) ==
LOC: BICRAD 10:22
PROVIDERS: ATTEND Family Medicine
DX: R07.81 Pleurodynia (principal)
CPT/HCPCS: 71046